=== PATIENT | male | born 1985 | race Caucasian/White ===

== ENCOUNTER 2017-09-13 06:44 | Emergency (ER) | payer OTHER ==
[~2017-09-13] VITALS: Ht 177.8 cm; Wt 87.5 kg
[2017-09-13 08:50] VITALS: BP 107/85
[2017-09-13] MEDS ORDERED: ROBITUSSIN AC,T10 ML PO (08:53)
[2017-09-13] MEDS ORDERED: OMEPRAZOLE40 M1 PO (08:53)
== END 2017-09-13 09:15 | disposition home or self-care (01) ==
LOC: EME 06:44
DX: J10.1 Influenza due to other identified influenza virus with other respiratory manifestations (principal); F17.200 Nicotine dependence, unspecified, uncomplicated
CPT/HCPCS: 87502